=== PATIENT | male | born 1960 | race Caucasian/White ===

== ENCOUNTER 2021-02-13 13:34 | Inpatient (IN) ==
[2021-02-13 15:02] LABS: Basophils % 0.3 %; Eosinophils % 0.3 %; Hematocrit 39.9 % (37.5-50.1); Hemoglobin 13.4 g/dL (12.9-16.9); Immature Granulocytes % 0.8 % (0-4); Lymphocytes # 0.8 K/mcL (0.6-4.6); Lymphocytes % 19.6 %; Mean Corpuscular HGB Conc 33.6 g/dL (31.6-35.5); Mean Corpuscular Hemoglobin 30.7 pg (28.0-33.3); Mean Corpuscular Volume 91.5 fL (83.0-100.0); Mean Platelet Volume 9.7 fL (9.4-12.4); Monocytes # 0.3 K/mcL (0.0-1.3); Monocytes % 6.4 %; Neutrophils # 2.9 K/mcL (1.6-8.9); Platelet Count 146 K/mcL (140-400); Red Blood Count 4.36 M/mcL (4.19-5.50); Red Cell Distribution Width 13.9 % (11.5-14.5); Segmented Neutrophils % 72.6 %; White Blood Count 3.9 K/mcL (4.3-11.1)
[2021-02-13 15:30] LABS: Alanine Aminotransferase 22 Units/L (7-52); Albumin 3.5 g/dL (3.5-5.7); Albumin/Globulin Ratio 1.2 (1.1-2.2); Alkaline Phosphatase 68 Units/L (34-104); Aspartate Amino Transferase 34 Units/L (13-39); BUN/Creatinine Ratio 26 (6-26); Bilirubin,Direct 0.2 mg/dL (0.0-0.2); Bilirubin,Indirect 0.6 mg/dL (0.0-1.0); Bilirubin,Total 0.8 mg/dL (0.3-1.0); Blood Urea Nitrogen 35 mg/dL (8-23); C-Reactive Protein 53 mg/L (Less than 10); Calcium 8.4 mg/dL (8.6-10.3); Carbon Dioxide 21 mEq/L (23-29); Chloride 98 mEq/L (98-107); Glucose 278 mg/dL (70-105); Lactate Dehydrogenase 361 Units/L (140-271); Magnesium 1.6 mg/dL (1.6-2.6); Osmolality,Calculated 290 (280-300); Phosphorous 3.2 mg/dL (2.7-4.5); Potassium 4.5 mEq/L (3.5-5.1); Sodium 131 mEq/L (136-145); Total Protein 6.5 g/dL (6.4-8.9); Troponin I < 0.03 ng/mL (< 0.04); eGFR For African Americans > 60 (> 60); eGFR For Non-African Americans 53 (> 60)
[2021-02-13 15:32] LABS: INR 1.2; Prothrombin Time 13.4 Seconds (9.4-12.1)
[2021-02-13 15:34] LABS: Activated Partial Thrombo Time 33.6 Seconds (26.0-36.0)
[2021-02-13] MEDS ORDERED: Ondansetron 4 MG/2 ML VIAL IVP ONE (15:45)
[2021-02-13] MEDS ORDERED: Dexamethasone 4 MG/ML VIAL IVP ONE (15:45)
[2021-02-13 15:46] LABS: Ferritin 604 ng/mL (20-250)
[2021-02-13 16:31] LABS: Adenovirus Not Detected (Not Detect); Coronavirus 229E Not Detected (Not Detect); Coronavirus HKU1 Not Detected (Not Detect); Coronavirus NL63 Not Detected (Not Detect); Coronavirus OC43 Not Detected (Not Detect); Human Metapneumovirus Not Detected (Not Detect); Human Rhinovirus/Enterovirus Not Detected (Not Detect); SARS-CoV-2 DETECTED (Not Detect)
[2021-02-13 16:32] LABS: Bordetella Pertussis Not Detected (Not Detect); Chlamydophila pneumoniae Not Detected (Not Detect); Influenza A Subtype 2009 H1 Not Detected (Not Detect); Influenza B Not Detected (Not Detect); Mycoplasma pneumoniae Not Detected (Not Detect); Parainfluenza Virus 1 Not Detected (Not Detect); Parainfluenza Virus 2 Not Detected (Not Detect); Parainfluenza Virus 3 Not Detected (Not Detect); Parainfluenza Virus 4 Not Detected (Not Detect); Respiratory Syncytial Virus Not Detected (Not Detect)
[2021-02-13] MEDS ORDERED: Ondansetron 4 MG/2 ML VIAL IVP PRN (17:54)
[2021-02-13] MEDS ORDERED: Naloxone 0.4 MG/ML INJ IVP PRN (17:54)
[2021-02-13] MEDS ORDERED: Acetaminophen 325 MG TABLET PO PRN (17:54)
[2021-02-13] MEDS ORDERED: Chloraseptic Spray 177 ML BOTTLE MM PRN (17:57)
[2021-02-13] MEDS ORDERED: Melatonin 3 MG TABLET PO PRN ×2 (17:57→21:00)
[2021-02-13] MEDS ORDERED: Saline Nasal Spray 44 ML BOTTLE NS PRN (17:57)
[2021-02-13] MEDS ORDERED: D5% in Water 1,000 ML IVC PRN (18:00)
[2021-02-13] MEDS ORDERED: *HR* Dextrose 50 % in Water (Vial) 50 ML VIAL IVP PRN (18:00)
[2021-02-13] MEDS ORDERED: Dextrose Gel 15 GM/37.5 ML TUBE PO PRN ×2 (18:00)
[2021-02-13 18:23] LABS: Estimated Average Glucose 180 mg/dl; Hemoglobin A1C 7.9 %
[2021-02-13] MEDS: Artificial Tears SOLN 15 ML BOTTLE BOTH EYES SCH (20:34)
[2021-02-13] MEDS: Insulin LISPRO 300 UNITS/3 ML VIAL SUBQ SCH (20:34)
[2021-02-13] MEDS: Calcium Gluconate 1gm/50mL 1 GM/50 ML BAG IVPB SCH (20:34)
[2021-02-13] MEDS ORDERED: Insulin DETEMIR 100 UNIT/ML X5UNITS SUBQ SCH (21:00)
[2021-02-13] MEDS: *HR* Heparin 5,000 UNIT/ML VIAL SQ SCH (21:35)
[2021-02-13] MEDS: Ipratropium 1 PUFF INHALER IH SCH (21:36)
[2021-02-13 22:02] LABS: Bacteria,Urine Few per hpf (None-Few); Bilirubin,Urine Negative (Negative); Blood,Urine Negative (Negative); Clarity,Urine Clear (Clear); Color,Urine Yellow (Yellow); Glucose,Urine (UA) 300 mg/dL (Normal); Hyaline Casts,Urine Few per lpf (None Seen); Ketones,Urine 20 mg/dL (Negative); Leukocyte Esterase,Urine Negative (Negative); Nitrite,Urine Negative (Negative); Protein,Urine 30 mg/dL (Neg-Trace); RBC,Urine 0-3 per hpf (0-3); Specific Gravity,Urine 1.025 (1.010-1.025); Squamous Epithelial Cell,Urine Few per hpf (None-Few); Urobilinogen,Urine Normal (Normal); WBC,Urine 0-3 per hpf (0-3)
[2021-02-13] MEDS ORDERED: Calcium Gluconate 1gm/50mL 1 GM/50 ML BAG IVPB SCH (23:30)
[2021-02-14] MEDS: *HR* HYDROcodone/Acet 5/325 mg TABLET PO PRN ×2 (00:07→22:04)
[2021-02-14 02:28] LABS: Basophils % 0.3 %; Hematocrit 39.4 % (37.5-50.1); Hemoglobin 13.1 g/dL (12.9-16.9); Immature Granulocytes % 0.7 % (0-4); Lymphocytes # 0.6 K/mcL (0.6-4.6); Lymphocytes % 20.6 %; Mean Corpuscular HGB Conc 33.2 g/dL (31.6-35.5); Mean Corpuscular Hemoglobin 29.8 pg (28.0-33.3); Mean Corpuscular Volume 89.7 fL (83.0-100.0); Mean Platelet Volume 9.6 fL (9.4-12.4); Monocytes # 0.2 K/mcL (0.0-1.3); Neutrophils # 2.2 K/mcL (1.6-8.9); Platelet Count 149 K/mcL (140-400); Red Blood Count 4.39 M/mcL (4.19-5.50); Red Cell Distribution Width 13.6 % (11.5-14.5); Segmented Neutrophils % 73.4 %
[2021-02-14 02:37] LABS: INR 1.1; Prothrombin Time 12.3 Seconds (9.4-12.1)
[2021-02-14 02:47] LABS: Alanine Aminotransferase 22 Units/L (7-52); Albumin 3.6 g/dL (3.5-5.7); Albumin/Globulin Ratio 1.2 (1.1-2.2); Alkaline Phosphatase 70 Units/L (34-104); Aspartate Amino Transferase 31 Units/L (13-39); BUN/Creatinine Ratio 29 (6-26); Bilirubin,Total 0.7 mg/dL (0.3-1.0); Blood Urea Nitrogen 35 mg/dL (8-23); C-Reactive Protein 69 mg/L (Less than 10); Calcium 8.8 mg/dL (8.6-10.3); Carbon Dioxide 19 mEq/L (23-29); Chloride 97 mEq/L (98-107); Globulin 3.1 g/dL (2.4-3.5); Glucose 395 mg/dL (70-105); Lactate Dehydrogenase 370 Units/L (140-271); Osmolality,Calculated 292 (280-300); Phosphorous 3.1 mg/dL (2.7-4.5); Potassium 5.4 mEq/L (3.5-5.1); Sodium 129 mEq/L (136-145); Total Protein 6.7 g/dL (6.4-8.9); eGFR For African Americans > 60 (> 60); eGFR For Non-African Americans > 60 (> 60)
[2021-02-14 03:01] LABS: Ferritin 716 ng/mL (20-250)
[2021-02-14] MEDS: Ipratropium 1 PUFF INHALER IH SCH ×4 (03:56→20:07)
[2021-02-14] MEDS: *HR* Heparin 5,000 UNIT/ML VIAL SQ SCH ×2 (05:32→13:02)
[2021-02-14] MEDS ORDERED: Insulin LISPRO 300 UNITS/3 ML VIAL SUBQ SCH ×2 (07:30→08:00)
[2021-02-14] MEDS: Dexamethasone 4 MG/ML VIAL IVP SCH (08:08)
[2021-02-14] MEDS: Multivit/Ca/Min/Fe/FA 1 TAB TABLET PO SCH (08:09)
[2021-02-14] MEDS: Propranolol LA (24 HR) 60 MG CAP.SA.24H PO SCH (08:09)
[2021-02-14] MEDS: Cholecalciferol (D-3) 1,000 UNIT (25MCG) TABLET PO SCH (08:09)
[2021-02-14] MEDS: Artificial Tears SOLN 15 ML BOTTLE BOTH EYES SCH ×2 (08:18→20:17)
[2021-02-14] MEDS ORDERED: lisinopriL 20 MG TABLET PO SCH (09:00)
[2021-02-14] MEDS ORDERED: Furosemide 20 MG/2 ML VIAL IVP SCH (09:00)
[2021-02-14] MEDS ORDERED: Insulin LISPRO 300 UNITS/3 ML VIAL SUBQ ONE (11:15)
[2021-02-14] MEDS: Insulin LISPRO 300 UNITS/3 ML VIAL SUBQ SCH ×5 (11:37→20:18)
[2021-02-14] MEDS ORDERED: Insulin Regular, Human 100 UNIT/ML SUBQ ONE (17:58)
[2021-02-14] MEDS ORDERED: Insulin Human Regular 10 UNIT in 0.9 % Sodium Chloride 10 ML IV ONE (18:06)
[2021-02-14] MEDS: *HR* Enoxaparin 40 MG/0.4 ML SYRINGE SQ SCH (20:17)
[2021-02-14] MEDS: Insulin DETEMIR 100 UNIT/ML X5UNITS SUBQ SCH (20:18)
[2021-02-15 02:51] LABS: Basophils % 0.1 %; Hematocrit 41.2 % (37.5-50.1); Hemoglobin 13.6 g/dL (12.9-16.9); Immature Granulocytes % 0.3 % (0-4); Lymphocytes # 0.9 K/mcL (0.6-4.6); Lymphocytes % 9.8 %; Mean Corpuscular Hemoglobin 30.3 pg (28.0-33.3); Mean Corpuscular Volume 91.8 fL (83.0-100.0); Mean Platelet Volume 9.8 fL (9.4-12.4); Monocytes # 0.5 K/mcL (0.0-1.3); Neutrophils # 7.3 K/mcL (1.6-8.9); Platelet Count 192 K/mcL (140-400); Red Blood Count 4.49 M/mcL (4.19-5.50); Red Cell Distribution Width 13.2 % (11.5-14.5); Segmented Neutrophils % 83.8 %
[2021-02-15 02:53] LABS: White Blood Count 8.7 K/mcL (4.3-11.1)
[2021-02-15 03:07] LABS: BUN/Creatinine Ratio 30 (6-26); Blood Urea Nitrogen 40 mg/dL (8-23); Calcium 9.1 mg/dL (8.6-10.3); Carbon Dioxide 25 mEq/L (23-29); Chloride 97 mEq/L (98-107); Glucose 282 mg/dL (70-105); Osmolality,Calculated 290 (280-300); Potassium 4.4 mEq/L (3.5-5.1); Sodium 130 mEq/L (136-145); eGFR For African Americans > 60 (> 60); eGFR For Non-African Americans 54 (> 60)
[2021-02-15 03:10] LABS: C-Reactive Protein 42 mg/L (Less than 10); Lactate Dehydrogenase 364 Units/L (140-271)
[2021-02-15 03:26] LABS: Ferritin 902 ng/mL (20-250)
[2021-02-15] MEDS: Ipratropium 1 PUFF INHALER IH SCH ×4 (04:02→22:57)
[2021-02-15] MEDS: Artificial Tears SOLN 15 ML BOTTLE BOTH EYES SCH ×2 (07:29→22:14)
[2021-02-15] MEDS: Propranolol LA (24 HR) 60 MG CAP.SA.24H PO SCH (08:13)
[2021-02-15] MEDS: *HR* Enoxaparin 40 MG/0.4 ML SYRINGE SQ SCH ×2 (08:13→20:46)
[2021-02-15] MEDS: Multivit/Ca/Min/Fe/FA 1 TAB TABLET PO SCH (08:13)
[2021-02-15] MEDS: Cholecalciferol (D-3) 1,000 UNIT (25MCG) TABLET PO SCH (08:13)
[2021-02-15] MEDS: Dexamethasone 4 MG/ML VIAL IVP SCH (08:14)
[2021-02-15] MEDS: Insulin LISPRO 300 UNITS/3 ML VIAL SUBQ SCH ×7 (08:14→20:47)
[2021-02-15] MEDS: *HR* HYDROcodone/Acet 5/325 mg TABLET PO PRN ×2 (08:28→21:00)
[2021-02-15] MEDS: Calcium Gluconate 1gm/50mL 1 GM/50 ML BAG IVPB SCH (18:56)
[2021-02-15] MEDS: Insulin DETEMIR 100 UNIT/ML X5UNITS SUBQ SCH (20:47)
[2021-02-16] MEDS: Ipratropium 1 PUFF INHALER IH SCH ×2 (04:00→09:23)
[2021-02-16] MEDS: Multivit/Ca/Min/Fe/FA 1 TAB TABLET PO SCH (08:08)
[2021-02-16] MEDS: Propranolol LA (24 HR) 60 MG CAP.SA.24H PO SCH (08:09)
[2021-02-16] MEDS: Cholecalciferol (D-3) 1,000 UNIT (25MCG) TABLET PO SCH (08:09)
[2021-02-16] MEDS: *HR* Enoxaparin 40 MG/0.4 ML SYRINGE SQ SCH (08:09)
[2021-02-16] MEDS: Dexamethasone 4 MG/ML VIAL IVP SCH (08:10)
[2021-02-16] MEDS: Insulin LISPRO 300 UNITS/3 ML VIAL SUBQ SCH ×4 (08:11→11:42)
[2021-02-16 09:40] LABS: Basophils % 0.1 %; Hematocrit 39.5 % (37.5-50.1); Hemoglobin 13.1 g/dL (12.9-16.9); Immature Granulocytes % 0.8 % (0-4); Lymphocytes % 11.7 %; Mean Corpuscular HGB Conc 33.2 g/dL (31.6-35.5); Mean Corpuscular Hemoglobin 30.5 pg (28.0-33.3); Mean Corpuscular Volume 91.9 fL (83.0-100.0); Mean Platelet Volume 9.7 fL (9.4-12.4); Monocytes # 0.5 K/mcL (0.0-1.3); Monocytes % 5.3 %; Neutrophils # 7.1 K/mcL (1.6-8.9); Platelet Count 231 K/mcL (140-400); Red Cell Distribution Width 13.3 % (11.5-14.5); Segmented Neutrophils % 82.1 %; White Blood Count 8.6 K/mcL (4.3-11.1)
[2021-02-16] MEDS: Artificial Tears SOLN 15 ML BOTTLE BOTH EYES SCH (09:53)
[2021-02-16 09:56] LABS: BUN/Creatinine Ratio 31 (6-26); Blood Urea Nitrogen 36 mg/dL (8-23); Calcium 8.8 mg/dL (8.6-10.3); Carbon Dioxide 25 mEq/L (23-29); Chloride 96 mEq/L (98-107); Glucose 298 mg/dL (70-105); Osmolality,Calculated 291 (280-300); Potassium 4.2 mEq/L (3.5-5.1); Sodium 131 mEq/L (136-145); eGFR For African Americans > 60 (> 60); eGFR For Non-African Americans > 60 (> 60)
[2021-02-16 10:14] LABS: Ferritin 709 ng/mL (20-250)
[2021-02-16 10:16] LABS: Platelet Estimate Slight Decrease (Normal)
[2021-02-16 10:52] VITALS: BP 137/90
== END 2021-02-16 15:15 | disposition home or self-care (01) | DRG 871 ==
LOC: EMEROOARM 13:34 → 3BNU 13:34 → 2NENU 18:10 → SUATTDRO 18:39 → 2NENU 18:50
PROVIDERS: ADMIT Internal Medicine; ATTEND Internal Medicine